=== PATIENT | female | born 1980 | race Caucasian/White ===

== ENCOUNTER 2021-06-26 17:40 | Observation (INO) ==
[2021-06-26 18:36] LABS: Basophils # (auto) 0.04 K/uL (0-0.2); Basophils % (auto) 0.4 %; Eosinophils # (auto) 0.03 K/uL (0-0.5); Eosinophils % (auto) 0.3 %; Hematocrit (blood only) 41.8 % (37-47); Hemoglobin 14.6 g/dL (12.0-16.0); Immature Granulocytes # (auto) 0.01 K/uL (0.00-0.02); Immature Granulocytes % (auto) 0.1 %; Lymphocytes # (auto) 2.45 K/uL (1.2-3.4); Lymphocytes % (auto) 24.5 %; Mean Corpuscular Hemoglobin 33.5 pg (25-34); Mean Corpuscular Hgb Conc 34.9 g/dL (32-36); Mean Corpuscular Volume 95.9 fL (80-100); Mean Platelet Volume 8.6 fL (7.4-10.4); Monocytes # (auto) 0.46 K/uL (0.11-0.59); Monocytes % (auto) 4.6 %; Neutrophils # (auto) 6.99 K/uL (1.4-6.5); Neutrophils % (auto) 70.1 %; Platelet Count 283 K/uL (130-400); RDW Coefficient of Variation 13.4 % (11.5-14.5); RDW Standard Deviation 47.5 fL (36.4-46.3); Red Blood Count 4.36 M/uL (4.2-5.4); White Blood Count 9.98 K/uL (4.8-10.8)
[2021-06-26] MEDS ORDERED: LORazepam 1 MG TAB SL STA ×2 (18:42→19:55)
[2021-06-26] MEDS ORDERED: NICOTINE 14 MG/24 HR PATCH TD STA (18:42)
[2021-06-26 18:47] LABS: Appearance Urine Clear (Clear); Bacteria Urine Automated 1+ (Negative); Bilirubin Urine Negative (Negative); Blood Urine Negative (Negative); Color Urine Yellow; Epithelial Cell Urine Auto >30 /lpf (0-5); Glucose Urine UA Negative (Negative); Ketones Urine Negative (Negative); Leukocyte Esterase Urine Trace (Negative); Nitrite Urine Negative (Negative); Protein Urine Trace (Negative); RBC Urine Automated 0-4 /hpf (0-4); Urobilinogen Urine Negative (Negative); pH Urine 5.5 (4.5-7.5)
[2021-06-26 19:00] LABS: Acetaminophen < 2 ug/ml (10-30); Salicylate < 1.7 mg/dl (2.8-20)
[2021-06-26 19:01] LABS: Alanine Aminotransferase 26 U/L (12-78); Albumin Level 3.5 gm/dl (3.4-5.0); Aspartate Aminotransferase 41 U/L (15-37); BUN Creatinine Ratio 14.4 (10-20); Blood Urea Nitrogen 14 mg/dl (7-18); Calcium 8.4 mg/dl (8.5-10.1); Carbon Dioxide 24 mmol/L (21-32); Chloride 105 mmol/L (98-107); Creatinine Clr Calc Pharmacy 89.2 ml/min; Est GFR (African American) 83.2 ml/min; Est GFR (Non-African American) 71.8 ml/min; Glucose 97 mg/dl (70-99); Potassium 3.8 mmol/L (3.5-5.1); Sodium 140 mmol/L (136-145)
[2021-06-26 19:04] LABS: Albumin Globulin Ratio 0.8 (0.9-2); Alkaline Phosphatase 62 U/L (45-117); Bilirubin,Total 0.3 mg/dl (0.2-1); Globulin 4.2 gm/dl (2.5-4.0); Total Protein 7.7 gm/dl (6.4-8.2)
[2021-06-26 19:15] LABS: Thyroid Stimulating Hormone 0.478 uIu/ml (0.300-4.500); Troponin I < 0.015 ng/ml (0-0.045)
--- NOTE | 2021-06-26 19:17 | Emergency Department Note ---
Impression & Plan Mood disorder, Suicidal ideation ED Provider Note INFORMANT: Patient ED PROVIDER(S): David Torrez MD CHIEF COMPLAINT: Mental health evaluation PLAN: Disposition: Still a patient Condition: Good Outpatient prescription management: none Referral: None MEDICAL DECISION MAKING: Patient presented to the emergency department requesting mental health evaluation. She had suicidal ideation. Patient had no significant findings on physical examination. Her vital signs were abnormal at first however these were rechecked after she was able to calm down. Vital signs are much better. She had a work-up obtained. Her CBC, chemistry panel, TSH, LFTs, and troponin were negative. ECG was unremarkable. Patient's blood alcohol was significantly elevated at 291. Patient was given oral Ativan as well as hydroxyzine. She was requesting something to help her sleep and calm down. This worked nicely. The patient was calm and cooperative. She was comfortable and was able to rest. He r medications were ordered. Unfortunately we do not have her Dovato here. ER psychiatric casework manager evaluation will take place at 0300 hrs. once the patient clears her alcohol intoxication. The patient's case was signed out to Dr. Huynh at the change of shift. Triage Nursing notes reviewed and agree them. Vital Signs: reviewed and remarkable for no significant abnormalities after the patient was able to calm down. Differential diagnosis: Mood disorder, infection, hypoglycemia, electrolyte abnormalities, cardiac sources, intracerebral event, toxicologic, trauma, neurologic, as well as other pathologies. Diagnostics interpreted by me: EC Lead ECG performed and revealed Normal sinus rhythym at 76, normal [place], QRS normal. No elevation or depression. No PACs or PVCs Imaging studies: Deferred HPI: The patient is a 40 year old for who presents to the Emergency Room with complaints of suicidal ideation. This started over the last few weeks and is escalating over the last few days. The patient also notes the following associated symptoms, muscle cramping, anxiety, trouble sleeping, excessive eating, and occasional chest pains. The patient has been using alcohol for relieving factors. Current pain is rated as 0/10. Patient states that she would like to crash her car. She has had a history of suicidal problems. She has been admitted. Pt denies LOC, headache, fevers, chills, diaphoresis, visual changes, neck pain, breathing difficulties, nausea, vomiting, abdominal pain, back pain, melena, hematochezia, urinary symptoms, numbness, weakness, lymphadenopathy, rash, or other complaints. ROS: See above HPI for pertinent positives & negatives. A total of 10 systems r eviewed and were otherwise negative. PAST MEDICAL HISTORY:See Below , drug abuse, anxiety, depression, HIV PAST SURGICAL HISTORY:See Below, FAMILY HISTORY:See Below SOCIAL HISTORY:See Below, +etoh HOME MEDICATIONS:See Below ALLERGIES:See Below VITALS:See Below PHYSICAL EXAMINATION: GENERAL: Awake, alert, well-appearing, in no distress HENT: Normocephalic, atraumatic. Oropharynx unremarkable. EYES: Normal conjunctiva. Sclera non-icteric. NECK: Inspection normal. Non-tender. Supple. No nuchal rigidity. FROM. No masses. RESPIRATORY: Clear to auscultation. No wheezes. No rales. Normal respiratory effort. CARDIAC: Normal rate. Normal rhythm. No murmurs. No rubs. Extremities warm and well perfused. Pulses equal. No JVD. GI: Soft, non-distended. No tenderness to palpation. No rebound or guarding. No masses. RECTAL: Deferred. MUSCULOSKELETAL: Atraumatic. Chest examination reveals no tenderness. The back is symmetrical on inspection without obvious abnormality. There is no CVA tenderness to palpation. No joint edema. LOWER EXTREMITIES: Calves are equal size bilaterally and non-tender. No edema. No discoloration. NEURO: Normal sensorium. No sensory or motor deficits noted. SKIN: No rash or jaundice noted. PSYCH: Depressed mood, labile affect. Suicidal. No homicidal ideation. David Torrez MD Past Med/Surg History Social History Feels Safe at Home: Yes Allergies Allergies Allergy/AdvReac Type Severity Reaction Status Date / Time No Known Allergies Allergy Unverified 06/26/21 18:54 Home Meds Home Medications Medication Instructions Recorded Confirmed bupropion HCl 100 mg tablet 450 mg PO DAILY 06/26/21 06/26/21 dolutegravir 50 mg-lamivudine 300 0 tab PO DAILY 06/26/21 06/26/21 mg tablet (Dovato) topiramate 200 mg tablet (Topamax) 200 mg PO BID 06/26/21 06/26/21 trazodone 100 mg tablet 200 mg PO HS 06/26/21 06/26/21 Results & Data (ED) Vital Signs Vital Signs - 24 hr 06/26/21 17:58 06/26/21 18:29 06/26/21 19:48 Temperature 36.4 C L 37.1 C Temperature Source Temporal Artery Scan Oral Pulse Rate 153 H Pulse Rate [Right Finger] 99 H 105 H Pulse Rhythm [Right Finger] Regular Pulse Strength [Right Finger] Normal Respiratory Rate 18 18 26 H Respiratory Effort / Characteristics Non-Labored Non-Labored Spontaneous Respiratory Depth Normal Normal Respiratory Pattern Regular Regular Blood Pressure 173/154 H Blood Pressure [Left Arm] 123/82 135/68 Blood Pressure Mean 160 Blood Pressure Mean [Left Arm] 95 90 Blood Pressure Position Sitting Blood Pressure Position [Left Arm] Lying Pulse Oximetry 94 97 98 Oxygen Delivery Method Room Air Room Air Room Air Sepsis Recent Fever Within 48 Hours No Sepsis New/Unexplained Change in Mental Status No Sepsis Action Taken by Nursing No Action Required 06/26/21 21:00 06/26/21 23:00 Temperature 36.9 C Temperature Source Oral Pulse Rate Pulse Rate [Right Finger] 88 87 Pulse Rhythm [Right Finger] Regular Pulse Strength [Right Finger] Normal Respiratory Rate 20 18 Respiratory Effort / Characteristics Non-Labored Spontaneous Respiratory Depth Normal Respiratory Pattern Regular Blood Pressure Blood Pressure [Left Arm] 100/52 L 117/65 Blood Pressure Mean Blood Pressure Mean [Left Arm] 68 82 Blood Pressure Position Blood Pressure Position [Left Arm] Lying Lying Pulse Oximetry 96 95 Oxygen Delivery Method Room Air Room Air Sepsis Recent Fever Within 48 Hours Sepsis New/Unexplained Change in Mental Status Sepsis Action Taken by Nursing Laboratory Data Result diagrams: 06/26/21 18:25 06/26/21 18:25 Lab Results 06/26/21 06/26/21 06/26/21 Range/Units 18:22 18:22 18:25 WBC 9.98 (4.8-10.8) K/uL RBC 4.36 (4.2-5.4) M/uL Hgb 14.6 (12.0-16.0) g/dL Hct 41.8 (37-47) % MCV 95.9 (80-100) fL MCH 33.5 (25-34) pg MCHC 34.9 (32-36) g/dL RDW Std Deviation 47.5 H (36.4-46.3) fL RDW Coeff of Aleena 13.4 (11.5-14.5) % Plt Count 283 (130-400) K/uL MPV 8.6 (7.4-10.4) fL Immature Gran % (Auto) 0.1 % Neut % (Auto) 70.1 % Lymph % (Auto) 24.5 % Bracken % (Auto) 4.6 % Eos % (Auto) 0.3 % Baso % (Auto) 0.4 % Neut # (Auto) 6.99 H (1.4-6.5) K/uL Lymph # (Auto) 2.45 (1.2-3.4) K/uL Bracken # (Auto) 0.46 (0.11-0.59) K/uL Eos # (Auto) 0.03 (0-0.5) K/uL Baso # (Auto) 0.04 (0-0.2) K/uL Immature Gran # (Auto) 0.01 (0.00-0.02) K/uL Sodium (136-145) mmol/L Potassium (3.5-5.1) mmol/L Chloride (98-107) mmol/L Carbon Dioxide (21-32) mmol/L Anion Gap (3-11) BUN (7-18) mg/dl Creatinine (0.6-1.2) mg/dl Est Cr Clr Drug Dosing ml/min Est GFR ( Amer) ml/min Est GFR (Non-Af Amer) ml/min BUN/Creatinine Ratio (10-20) Glucose (70-99) mg/dl Calcium (8.5-10.1) mg/dl Total Bilirubin (0.2-1) mg/dl AST (15-37) U/L ALT (12-78) U/L Alkaline Phosphatase (45-117) U/L Troponin I (0-0.045) ng/ml Total Protein (6.4-8.2) gm/dl Albumin (3.4-5.0) gm/dl Globulin (2.5-4.0) gm/dl Albumin/Globulin Ratio (0.9-2) TSH (0.300-4.500) uIu/ml HCG, Qual (Negative) Urine Color Yellow Urine Appearance Clear (Clear) Urine pH 5.5 (4.5-7.5) Ur Specific Christine 1.010 (1.000-1.030) Urine Protein Trace H (Negative) Urine Glucose (UA) Negative (Negative) Urine Ketones Negative (Negative) Urine Blood Negative (Negative) Urine Nitrite Negative (Negative) Urine Bilirubin Negative (Negative) Urine Urobilinogen Negative (Negative) Ur Leukocyte Esterase Trace H (Negative) Urine WBC (Auto) 5-10 H (0-5) /hpf Urine RBC (Auto) 0-4 (0-4) /hpf U Hyaline Cast (Auto) 1-5 (0-5) /lpf U Epithel Cells (Auto) >30 H (0-5) /lpf Urine Bacteria (Auto) 1+ H (Negative) Salicylates (2.8-20) mg/dl Urine Opiates Screen Neg (Neg) Ur Methadone, Qual Neg (Neg) Acetaminophen (10-30) ug/ml Urine Barbiturates Neg (Neg) Ur Phencyclidine (PCP) Neg (Neg) U Amphetamin/Meth Scrn Neg (Neg) MDMA (Ecstasy) Screen Pos H (Neg) U Benzodiazepines Scrn Neg (Neg) Ur Cocaine Metabolite Neg (Neg) U Marijuana (THC) Screen Neg (Neg) Ethyl Alcohol mg/dL (0-3) mg/dl COVID-19 Eval Order SARS-CoV-2 (PCR) (Negative) 06/26/21 06/26/21 06/26/21 Range/Units 18:25 18:25 18:25 WBC (4.8-10.8) K/uL RBC (4.2-5.4) M/uL Hgb (12.0-16.0) g/dL Hct (37-47) % MCV (80-100) fL MCH (25-34) pg MCHC (32-36) g/dL RDW Std Deviation (36.4-46.3) fL RDW Coeff of Aleena (11.5-14.5) % Plt Count (130-400) K/uL MPV (7.4-10.4) fL Immature Gran % (Auto) % Neut % (Auto) % Lymph % (Auto) % Bracken % (Auto) % Eos % (Auto) % Baso % (Auto) % Neut # (Auto) (1.4-6.5) K/uL Lymph # (Auto) (1.2-3.4) K/uL Bracken # (Auto) (0.11-0.59) K/uL Eos # (Auto) (0-0.5) K/uL Baso # (Auto) (0-0.2) K/uL Immature Gran # (Auto) (0.00-0.02) K/uL Sodium 140 (136-145) mmol/L Potassium 3.8 (3.5-5.1) mmol/L Chloride 105 (98-107) mmol/L Carbon Dioxide 24 (21-32) mmol/L Anion Gap 12.0 H (3-11) BUN 14 (7-18) mg/dl Creatinine 0.99 (0.6-1.2) mg/dl Est Cr Clr Drug Dosing 89.2 ml/min Est GFR ( Amer) 83.2 ml/min Est GFR (Non-Af Amer) 71.8 ml/min BUN/Creatinine Ratio 14.4 (10-20) Glucose 97 (70-99) mg/dl Calcium 8.4 L (8.5-10.1) mg/dl Total Bilirubin 0.3 (0.2-1) mg/dl AST 41 H (15-37) U/L ALT 26 (12-78) U/L Alkaline Phosphatase 62 (45-117) U/L Troponin I < 0.015 (0-0.045) ng/ml Total Protein 7.7 (6.4-8.2) gm/dl Albumin 3.5 (3.4-5.0) gm/dl Globulin 4.2 H (2.5-4.0) gm/dl Albumin/Globulin Ratio 0.8 L (0.9-2) TSH 0.478 (0.300-4.500) uIu/ml HCG, Qual (Negative) Urine Color Urine Appearance (Clear) Urine pH (4.5-7.5) Ur Specific Christine (1.000-1.030) Urine Protein (Negative) Urine Glucose (UA) (Negative) Urine Ketones (Negative) Urine Blood (Negative) Urine Nitrite (Negative) Urine Bilirubin (Negative) Urine Urobilinogen (Negative) Ur Leukocyte Esterase (Negative) Urine WBC (Auto) (0-5) /hpf Urine RBC (Auto) (0-4) /hpf U Hyaline Cast (Auto) (0-5) /lpf U Epithel Cells (Auto) (0-5) /lpf Urine Bacteria (Auto) (Negative) Salicylates < 1.7 L (2.8-20) mg/dl Urine Opiates Screen (Neg) Ur Methadone, Qual (Neg) Acetaminophen < 2 L (10-30) ug/ml Urine Barbiturates (Neg) Ur Phencyclidine (PCP) (Neg) U Amphetamin/Meth Scrn (Neg) MDMA (Ecstasy) Screen (Neg) U Benzodiazepines Scrn (Neg) Ur Cocaine Metabolite (Neg) U Marijuana (THC) Screen (Neg) Ethyl Alcohol mg/dL 291.5 H (0-3) mg/dl COVID-19 Eval Order SARS-CoV-2 (PCR) (Negative) 06/26/21 06/26/21 06/26/21 Range/Units 18:25 18:55 18:55 WBC (4.8-10.8) K/uL RBC (4.2-5.4) M/uL Hgb (12.0-16.0) g/dL Hct (37-47) % MCV (80-100) fL MCH (25-34) pg MCHC (32-36) g/dL RDW Std Deviation (36.4-46.3) fL RDW Coeff of Aleena (11.5-14.5) % Plt Count (130-400) K/uL MPV (7.4-10.4) fL Immature Gran % (Auto) % Neut % (Auto) % Lymph % (Auto) % Bracken % (Auto) % Eos % (Auto) % Baso % (Auto) % Neut # (Auto) (1.4-6.5) K/uL Lymph # (Auto) (1.2-3.4) K/uL [place] # (Auto) (0.11-0.59) K/uL Eos # (Auto) (0-0.5) K/uL Baso # (Auto) (0-0.2) K/uL Immature Gran # (Auto) (0.00-0.02) K/uL Sodium (136-145) mmol/L Potassium (3.5-5.1) mmol/L Chloride (98-107) mmol/L Carbon Dioxide (21-32) mmol/L Anion Gap (3-11) BUN (7-18) mg/dl Creatinine (0.6-1.2) mg/dl Est Cr Clr Drug Dosing ml/min Est GFR ( Amer) ml/min Est GFR (Non-Af Amer) ml/min BUN/Creatinine Ratio (10-20) Glucose (70-99) mg/dl Calcium (8.5-10.1) mg/dl Total Bilirubin (0.2-1) mg/dl AST (15-37) U/L ALT (12-78) U/L Alkaline Phosphatase (45-117) U/L Troponin I (0-0.045) ng/ml Total Protein (6.4-8.2) gm/dl Albumin (3.4-5.0) gm/dl Globulin (2.5-4.0) gm/dl Albumin/Globulin Ratio (0.9-2) TSH (0.300-4.500) uIu/ml HCG, Qual Negative (Negative) Urine Color Urine Appearance (Clear) Urine pH (4.5-7.5) Ur Specific Christine (1.000-1.030) Urine Protein (Negative) Urine Glucose (UA) (Negative) Urine Ketones (Negative) Urine Blood (Negative) Urine Nitrite (Negative) Urine Bilirubin (Negative) Urine Urobilinogen (Negative) Ur Leukocyte Esterase (Negative) Urine WBC (Auto) (0-5) /hpf Urine RBC (Auto) (0-4) /hpf U Hyaline Cast (Auto) (0-5) /lpf U Epithel Cells (Auto) (0-5) /lpf Urine Bacteria (Auto) (Negative) Salicylates (2.8-20) mg/dl Urine Opiates Screen (Neg) Ur Methadone, Qual (Neg) Acetaminophen (10-30) ug/ml Urine Barbiturates (Neg) Ur Phencyclidine (PCP) (Neg) U Amphetamin/Meth Scrn (Neg) MDMA (Ecstasy) Screen (Neg) U Benzodiazepines Scrn (Neg) Ur Cocaine Metabolite (Neg) U Marijuana (THC) Screen (Neg) Ethyl Alcohol mg/dL (0-3) mg/dl COVID-19 Eval Order Covid19 at [facility] SARS-CoV-2 (PCR) NEGATIVE (Negative) Administered Medications Discontinued Medications Hydroxyzine HCl (Hydroxyzine Hcl 25 Mg Tab) 50 mg PO NOW STA Stop: 06/26/21 19:56 Last Admin: 06/26/21 20:04 Dose: 50 mg Documented by: [id number] Lorazepam (Lorazepam 1 Mg Tab) 1 mg SL NOW STA Stop: 06/26/21 18:43 Last Admin: 06/26/21 19:05 Dose: 1 mg Documented by: [id number] Lorazepam (Lorazepam 1 Mg Tab) 1 mg SL NOW STA Stop: 06/26/21 19:56 Last Admin: 06/26/21 20:04 Dose: 1 mg Documented by: [id number] Nicotine (Nicotine 14 Mg/24 Hr Patch) 14 mg TD NOW STA Stop: 06/26/21 18:43 Last Admin: 06/26/21 19:06 Dose: 14 mg Documented by: [id number] Discharge Plan Visit Data Chief Complaint: Mental Health Evaluation Stated Complaint: ANXIETY, SHAKING ED Provider: David Torrez Discharge Problem: Mood disorder, Suicidal ideation Forms Stand Alone Forms: [facility], Suicide Prevention Resources Prescriptions Prescriptions: No Action bupropion HCl [Wellbutrin] 100 mg Tablet 450 mg PO DAILY RF: 0 trazodone 100 mg Tablet 200 mg PO HS RF: 0 topiramate [Topamax] 200 mg Tablet 200 mg PO BID RF: 0 Dovato 50-300 mg Tablet 0 tab PO DAILY RF: 0 Referrals Referrals: PCP,NO [Primary Care Provider] -
[2021-06-26 19:21] LABS: Pregnancy Test, Serum Negative (Negative)
[2021-06-26 19:23] LABS: Amphetamines+Metham, Urine Neg (Neg); Barbiturates, Urine Neg (Neg); Benzodiazepine, Urine Neg (Neg); Cocaine, Urine Neg (Neg); MDMA (Ecstacy), Urine Pos (Neg); Methadone, Urine Neg (Neg); Opiate, Urine Neg (Neg); Phencyclidine, Urine Neg (Neg)
[2021-06-26] MEDS ORDERED: hydrOXYzine HCl 25 MG TAB PO STA (19:55)
--- NOTE | 2021-06-27 07:11 | Emergency Department Note ---
ED Visit Note I received this patient at the change of shift from Dr. Torrez pending mental health evaluation. This patient stated that she was drinking 8 shots daily to previous staff however upon mental health case pickerinternational bank manager stated 20 shots daily. Upon review of the patient's ED record she had received 1 mg of Ativan orally at 3 AM and a second dose at 4 AM and nothing in the last 8 hours. Patient's vital signs have not changed, heart rate and blood pressure are stable. She is showing no signs of significant alcohol withdrawal currently. She has not having enough Ativan over the last 8 hours to prevent withdrawal and if the daily alcohol consumption she claims are true, significant w/d sx would be expected. Pt desires inpatient mental health treatment. Currently, a bedsearch is underway. Case was signed out to Dr. Lopez at the change of shift pending final disposition. .
[2021-06-27] MEDS ORDERED: LORazepam 1 MG TAB SL PRN (07:39)
--- NOTE | 2021-06-27 07:47 | Emergency Department Note ---
ED Visit Note ED Physician Sign Out Note: 40 yr old female here on a voluntary basis for mental health evaluation. Due to heavy intoxication last night she was monitored and signed out to me this morning. Patient reportedly alcohol abuse thus monitoring for any withdrawal symptoms. She is on HIV medications pending Case Management attempting to get her medications. On evaluation throughout morning patient becoming more shaky and tremulous. Blood pressure is starting to elevate and patient is unsteady. She admits history of alcohol withdrawal seizures, and denies ability to go more than 12 to 24 hours without a drink in quite some time. IV established and she was given 2 mg IV ativan and a banana bag IV. Dr Barbara Kim hospitalist consulted for further management. Aguila Lopez MD
[2021-06-27] MEDS ORDERED: buPROPion XL 150 MG TABCR PO SCH (09:00)
[2021-06-27] MEDS ORDERED: TOPIRAMATE 100 MG TAB PO SCH (09:00)
[2021-06-27] MEDS ORDERED: LORazepam 2 MG/4 ML VIAL IV STA (11:45)
[2021-06-27] MEDS ORDERED: MULTI-VITAMIN INFUSION 10 ML, THIAMINE HCL 100 MG, FOLIC ACID 1 MG in SODIUM CHLORIDE 0... IV ONE ×2 (11:45→17:00)
[2021-06-27] MEDS ORDERED: chlordiazePOXIDE ALCOHOL WITHDRAWL 50MG PO STA (12:36)
[2021-06-27] MEDS: CHLORDIAZEPOXIDE 50MG STARTING DOSE PO SCH ×2 (14:04→19:25)
[2021-06-27] MEDS ORDERED: LORazepam 2 MG/4 ML VIAL IV PRN (16:10)
[2021-06-27] MEDS ORDERED: LORazepam 1 MG/2 ML VIAL IV PRN (16:10)
[2021-06-27] MEDS ORDERED: LORazepam 0.5 MG/1 ML VIAL IV PRN (16:10)
[2021-06-27] MEDS ORDERED: PROMETHAZINE HCL 12.5 MG in SODIUM CHLORIDE 0.9% 50 ML IV PRN (16:10)
[2021-06-27] MEDS ORDERED: THIAMINE HCL 100 MG TAB PO SCH (16:10)
[2021-06-27] MEDS ORDERED: LORazepam 3 MG/6 ML VIAL IV PRN (16:10)
[2021-06-27] MEDS ORDERED: ACETAMINOPHEN 325 MG TAB PO PRN (16:10)
[2021-06-27] MEDS ORDERED: ATIVAN IV ALCOHOL WITHDRAWL IV PRN (16:10)
[2021-06-27] MEDS ORDERED: chlordiazePOXIDE HCl 25 MG CAP PO SCH (16:10)
--- NOTE | 2021-06-27 16:20 | Electrocardiogram Report ---
Test Reason : Blood Pressure : / mmHG Vent. Rate : 076 BPM Atrial Rate : 076 BPM P-R Int : 176 ms QRS Dur : 092 ms QT Int : 410 ms P-R-T Axes : 076 053 064 degrees QTc Int : 461 ms Normal sinus rhythm Normal ECG No previous ECGs available Confirmed by Patricio Angulo ([id number]) on 06/27/2021 4:20:03 PM Referred By: REFERRED SELF Confirmed By:Patricio Angulo
[2021-06-27] MEDS: FOLIC ACID 1 MG TAB PO SCH (17:08)
[2021-06-27] MEDS: NICOTINE 21 MG/24 HR TDSY TD SCH (17:12)
--- NOTE | 2021-06-27 17:45 | History & Physical Report ---
Date of Service June 27, 2021 Assessment & Plan (1) Suicidal ideation: Plan: 40-year-old female with history of depression anxiety, alcoholism, HIV, presenting with suicidal ideation. ALCOHOL WITHDRAWAL Alcohol withdrawal protocol including Librium taper, banana bag Monitor closely SUICIDAL IDEATION Psychiatry service consulted Patient is presenting for voluntary inpatient psych care Discussed with psych liaison Continue one-to-one observation CHEST PAIN Likely secondary to anxiety Will rule out ACS as patient is a heavy smoker Check troponins x3 Echocardiogram EKG no signs of acute ischemia or infarct Continue trazodone, Topamax Has not been taking Wellbutrin for the past 2 days Further recommendations regarding medication management per psychiatry service HIV Patient takes Devato daily Patient will try to have somebody bring her HIV medication SMOKER Cessation encouraged Nicotine patch for now DVT prophylaxis SCDs Ambulation encouraged CODE STATUS Full code Disposition Discharge to inpatient psych unit once medically stable plan of care discussed with patient in detail and at length all questions answered she is understanding, agreeable, comfortable with the plan of care Admission and Anticipated Discharge Date Admission Date: June 27, 2021 History of Present Illness Chief Complaint: 40-year-old female with history of depression anxiety, alcoholism, HIV, presenting with suicidal ideation. Patient reports increasing depression anxiety symptoms recently leading to alcohol use. She reports that she has been taking at least 15-20 shots of alcohol for the past week. She presented to the ER with increasing depression symptoms and suicidal ideations. At the ER, patient was seen by psych liaison and inpatient psychiatry was recommended. While being observed, patient was noted to be in alcohol withdrawal. She was given IV Ativan at the ER. Patient seen at the bedside with MILVIA Fry at the bedside throughout all encounter. States she feels very anxious about the succeeding steps of her inpatient psych care. Reports Ativan helped with anxiety. Also reports chest discomfort over the past 1 to 2 days mostly on the left chest wall, shoulder area. No shortness of breath, palpitations, dizziness, nausea vomiting. She admits to smoking 1 pack/day. No other symptoms Primary Care Provider: NO PCP Allergies Allergy/AdvReac Type Severity Reaction Status Date / Time No Known Allergies Allergy Unverified 06/26/21 18:54 Home Medications Medication Instructions Recorded Confirmed Type bupropion HCl 100 mg tablet 450 mg PO DAILY 06/26/21 06/26/21 History dolutegravir 50 mg-lamivudine 300 0 tab PO DAILY 06/26/21 06/26/21 History mg tablet (Dovato) topiramate 200 mg tablet (Topamax) 200 mg PO BID 06/26/21 06/26/21 History trazodone 100 mg tablet 200 mg PO HS 06/26/21 06/26/21 History Past Med/Surg History Social History Smoking Status: Current every day smoker Cigarettes Per Day: 20; Tobacco Cessation Education Requested by Patient: No Hx Alcohol Use: Yes Alcohol type: hard liquor Hx Substance Use: Yes Communication Ability: Effective Furniture Removalist Required: No Beliefs That Will Affect Care: None Current Living Situation: Other Current Living Situation Comment: 3 room mates Other Information That Helps Us Care for You: No Feels Safe at Home: Yes Safety Concerns: Feels Safe At This Time Assistive Devices: None Review of Systems Review of Systems: all noted and negative except for above Physical Exam Physical Exam: General- oriented x 3, not in distress, speaks in sentences with no effort or accessory muscle use Head- atraumatic Eyes- PERRL, EOMI, anicteric ENT- oropharynx clear Neck- supple, no JVD, no adenopathy, no thyromegaly; carotids +2/2, no bruits appreciated Lungs- clear to auscultation bilaterally, no rales/wheezes Heart- normal rate, regular rhythm; no murmur, no gallop, no rub appreciated Abdomen- normal bowel sounds, nondistended, soft, nontender, no masses or hepatosplenomegaly Extremities- no pretibial edema, no calf tenderness; peripheral pulses intact Neuro- alert, oriented x 3; CN 2-12 grossly intact; motor 5/5 bilaterally;sensation 100% on all extremities; no other gross focal neurologic deficits Skin- warm & dry Psych-appears anxious, normal affect, calm cooperative Results & Data Results & Data ([facility]) Vital Signs (Past 12 Hours) Vital Signs Temp Pulse Pulse Resp BP BP Pulse Ox 06/27/21 16:37 36.8 C 67 14 122/83 98 06/27/21 16:00 70 14 06/27/21 15:41 122/83 97 06/27/21 14:59 68 20 98 06/27/21 14:10 68 16 06/27/21 14:00 72 17 06/27/21 13:50 80 21 06/27/21 13:40 71 21 06/27/21 13:30 71 18 06/27/21 13:28 72 15 06/27/21 13:10 70 16 06/27/21 13:00 81 15 132/95 06/27/21 12:50 73 18 06/27/21 12:40 72 20 06/27/21 12:30 73 18 128/10 L 06/27/21 12:16 84 17 06/27/21 11:43 96 H 20 143/107 H 96 06/27/21 07:01 78 16 148/87 H 97 all noted and reviewed including below Code Status & VTE Plan VTE Prophylaxis Plan VTE Prophylaxis will be ordered: Yes
[2021-06-27] MEDS: TOPIRAMATE 100 MG TAB PO SCH (20:57)
[2021-06-27] MEDS ORDERED: traZODone HCL 100 MG TAB PO SCH ×2 (21:00)
[2021-06-28] MEDS: CHLORDIAZEPOXIDE 50MG STARTING DOSE PO SCH ×2 (01:23→08:49)
[2021-06-28 05:36] LABS: Basophils # (auto) 0.03 K/uL (0-0.2); Basophils % (auto) 0.4 %; Eosinophils # (auto) 0.21 K/uL (0-0.5); Eosinophils % (auto) 2.5 %; Hematocrit (blood only) 35.6 % (37-47); Hemoglobin 11.7 g/dL (12.0-16.0); Immature Granulocytes # (auto) 0.01 K/uL (0.00-0.02); Immature Granulocytes % (auto) 0.1 %; Lymphocytes # (auto) 2.05 K/uL (1.2-3.4); Lymphocytes % (auto) 24.2 %; Mean Corpuscular Hemoglobin 32.5 pg (25-34); Mean Corpuscular Hgb Conc 32.9 g/dL (32-36); Mean Corpuscular Volume 98.9 fL (80-100); Mean Platelet Volume 9.2 fL (7.4-10.4); Monocytes # (auto) 0.63 K/uL (0.11-0.59); Monocytes % (auto) 7.4 %; Neutrophils # (auto) 5.53 K/uL (1.4-6.5); Neutrophils % (auto) 65.4 %; Platelet Count 184 K/uL (130-400); RDW Coefficient of Variation 13.6 % (11.5-14.5); RDW Standard Deviation 49.2 fL (36.4-46.3); White Blood Count 8.46 K/uL (4.8-10.8)
[2021-06-28 06:01] LABS: Alanine Aminotransferase 21 U/L (12-78); Albumin Level 2.9 gm/dl (3.4-5.0); Aspartate Aminotransferase 28 U/L (15-37); Bilirubin Direct 0.2 mg/dl (0-0.2); Bilirubin,Total 0.5 mg/dl (0.2-1); Blood Urea Nitrogen 10 mg/dl (7-18); Calcium 8.6 mg/dl (8.5-10.1); Carbon Dioxide 22 mmol/L (21-32); Chloride 112 mmol/L (98-107); Creatinine Clr Calc Pharmacy 98.5 ml/min; Est GFR (African American) 92.1 ml/min; Est GFR (Non-African American) 79.5 ml/min; Glucose 100 mg/dl (70-99); Magnesium 2.1 mg/dl (1.8-2.4); Phosphorus 2.7 mg/dl (2.5-4.9); Potassium 4.1 mmol/L (3.5-5.1); Sodium 139 mmol/L (136-145); Total Protein 6.3 gm/dl (6.4-8.2)
[2021-06-28 06:16] LABS: Alkaline Phosphatase 49 U/L (45-117); Troponin I < 0.015 ng/ml (0-0.045)
[2021-06-28] MEDS: TOPIRAMATE 100 MG TAB PO SCH (08:57)
[2021-06-28] MEDS: FOLIC ACID 1 MG TAB PO SCH (08:57)
[2021-06-28] MEDS: NICOTINE 21 MG/24 HR TDSY TD SCH (08:57)
[2021-06-28] MEDS ORDERED: THIAMINE HCL 100 MG TAB PO SCH (09:00)
[2021-06-28] MEDS ORDERED: buPROPion HCl 75 MG TABLET PO SCH (09:00)
--- NOTE | 2021-06-28 11:26 | Psychiatric Consultation ---
Date of Consultation June 28, 2021 Impression / Recommendations Impression 40 yo woman with a history of anxiety, depression, BPD, PTSD, history of opioid use disorder in sustained remission, and alcohol use disorder admitted for SI and concern for high risk for alcohol withdrawal. Psychiatry was consulted for risk assessment and disposition recommendations. Diagnostically consistent with unspecified depression and anxiety-likely a combination of MDD, TERE as well as alcohol-induced depression and anxiety. Discussed my recommendation for referral to dual diagnosis inpatient psychiatric and substance use treatment and/or residential substance use treatment which she declines at this time due to concerns about financial stability and desire to return to her apartment and pets. Discussed option for outpatient referrals for psychiatry and therapy and IOP of substance use which she also declines at this time. Discussed option to try propranolol for anxiety as this is a much safer alternative to a benzodiazepine which she is agreeable to trying though she notes her eagerness to leave the hospital soon. While I think she would benefit from inpatient psychiatric treatment at this time she does not meet criteria for involuntary treatment and she declines voluntary treatment. Discussed with her ways to reduce both her acute and chronic risk of harm to self including substance use treatment as the most significant modifiable risk factor as well as starting therapy and outpatient psychiatric support to find medications to better manage her anxiety. In terms of acute risk she is deemed to be at low imminent risk of harm to self given denial of SI, future oriented, engaged in safety planning, no access to guns and no hx of past suicide attempts and hx of seeking help when she becomes suicidal. Chronic risk is moderate, especially if she continues to use alcohol, and if her mood symptoms remain suboptimally managed. Also discussed with her risks of potentially fatal alcohol withdrawal should she choice to not allow ongoing monitoring and encouraged her to stay to receive ongoing treatment for this. (1) Depression, unspecified: (2) Anxiety disorder, unspecified: (3) Alcohol use disorder: -Safe to discharge from a psychiatric standpoint if she asks to leave -Provided with local resources for mental health and substance use supports -If she agrees to stay will continue to encourage her to allow us to refer her for higher level of care or for outpatient psych services -Can offer propranolol 10 mg BID prn for anxiety -c/w alcohol withdrawal protocol -discontinue 1:1 given no SI -hold prior to admission psych medications for now given acute withdrawal Risk Factors Assessment : Yes Do You Have Access To A Gun?: No Mental Health Diagnoses: Yes Substance Use Disorders: Yes Previous Attempt: No Family History of Suicide: No Previous Psychiatric Hospitalization: Yes Hopelessness: No Protective Factors Assessment Employed: Yes Stable Relationships: Yes Supportive Family: Yes Psych History Identifying Data 40 yo woman with a history of anxiety, depression, BPD, PTSD, history of opioid use disorder in sustained remission, and alcohol use disorder and HIV admitted for SI and concern for high risk for alcohol withdrawal. Psychiatry was consulted for risk assessment and disposition recommendations. Chief Complaint "I felt like enough was enough". History of Present Illness Jamaal endorses a long history of depression and especially anxiety which have not responded well to medications in the past except use of benzodiazepines. Most recently she was taking Wellbutrin, Topimax and Trazodone for her mood and sleep. She notes that over the last week she was facing a lot of stressors including car issues, fiancial strain, issues with her roommates, chronic pain, high anxiety and frustration with work as well as some of her family moving out of state. She notes that this lead her to feel overwhelmed and decided to drink more alcohol to cope with this. She was drinking 20 shots of liquor per day over the last week, prior to this she was drinking 10 shots per day. She then felt sick from drinking all the alcohol and starting to experience SI with thoughts of driving off a bridge which scared her so she told her roommates and then helped her get an uber to come to the hospital. On arrival her TABITHA was elevated and she was deemed high risk for withdrawal and thus admitted medically. Currently she adamantly denies any SI and while she recognizes that none of her stressors have changed she feels like now that she is not drinking alcohol/no longer intoxicated her mood has improved and she can think more logically. She notes many reasons to live and significant deterrents including her family, pets and life goals. She is future-oriented about looking for a new apartmemt, wanting to go home and shower and able to safety plan including reviewing what she would do if the SI re-emerged. She has no access to guns and has never attempted suicide. She states that if SI re-emerged she would reach out to her family or roommates again and return to the ED if she felt unsafe. Also reviewed national crisis line resources. She is most interested in benzodiazepines for her anxiety as she felt this was the only thing that has ever helped her. We reviewed why benzodiazepines are not a good treatment option for anxiety and that it would not be safe given her alcohol use and contraindicated. Discussed option of propranolol which she has not tried for anxiety before. Doesn't find buspar or vistaril helpful. In the past she took naltrexone and found this helpful for alcohol use and she endorses a history of prior substance use treatment in the past including 2-3 prior residential substance use treatment programs (last in 2013) and living in supportive housing/retirement houses but primarily when she was dealing with opioid use disorder which she has avoided any use since 2013 with the exception of two isolated "slip ups". She denies any recent use of any substances except alcohol. No history of complicated alcohol withdrawal. She had been taking Wellbutrin 450 mg qd, topamax 200 mg BID and trazodone 200 mg qhs prior to admission. States she sometimes forgets to take her Wellbutrin if she sleeps in. Past Psychiatric History Current Psychiatric Diagnosis: MDD, TERE, BPD, and PTSD Outpatient Services: none currently Previous Psych Admissions: hx multiple admissions in the past Do You Have Access To A Gun?: No History of Previous Suicide Attempt: No Past Medication Trials: lexapro, prazac, xanax, ativan, vistaril, buspar, naltrexone Allergies Allergy/AdvReac Type Severity Reaction Status Date / Time No Known Allergies Allergy Unverified 06/26/21 18:54 Home Medications Medication Instructions Recorded Confirmed Type bupropion HCl 100 mg tablet 450 mg PO DAILY 06/26/21 06/26/21 History dolutegravir 50 mg-lamivudine 300 0 tab PO DAILY 06/26/21 06/26/21 History mg tablet (Dovato) topiramate 200 mg tablet (Topamax) 200 mg PO BID 06/26/21 06/26/21 History trazodone 100 mg tablet 200 mg PO HS 06/26/21 06/26/21 History Family History depression, ADHD Substance Abuse History see HPI Personal History Living Arrangements: Apartment Beliefs That Will Affect Care: None Patient History Social History Smoking Status: Current every day smoker Cigarettes Per Day: 20; Tobacco Cessation Education Requested by Patient: No Hx Alcohol Use: Yes Alcohol type: hard liquor Hx Substance Use: Yes Communication Ability: Effective Benefits Consulting Analyst Required: No Beliefs That Will Affect Care: None Current Living Situation: Other Current Living Situation Comment: 3 room mates Other Information That Helps Us Care for You: No Feels Safe at Home: Yes Safety Concerns: Feels Safe At This Time Assistive Devices: None Physical Exam Psychiatric: Orientation: alert and oriented x 3 Apperance: appropriately dressed and appropriately groomed Eye Contact: good eye contact Motor Behavior: no abnormal motor movements Speech: normal rate/rhythm/volume of speech Affect: + anxious affect Mood: + depressed mood and + anxious mood Thought Process: goal directed thought process Thought Content: reality based without delusions Suicidal Thoughts: denies suicidal thoughts Homicidal Thoughts: denies homicidal thoughts Hallucinations: no auditory hallucinations and no visual hallucinations Cognition: attention grossly intact and language grossly intact Estimated Intelligence: consistent with education level Insight: + fair insight Judgement: + limited judgement Vital Signs (Past 24 Hours): Last Vital Signs Temp 37.1 C 06/28/21 08:00 Pulse 81 06/28/21 08:00 Resp 18 06/28/21 08:00 BP 145/101 H 06/28/21 08:00 Pulse Ox 99 06/28/21 08:00 Review of Systems All systems reviewed & are unremarkable except as noted in HPI & below Results & Data (PSY) Medications Administered Folic Acid (Folic Acid 1 Mg Tab) 1 mg PO QAM [facility] Stop: 07/27/21 16:09 Last Admin: 06/28/21 08:57 Dose: 1 mg Documented by: [id number] Admin: 06/27/21 17:08 Dose: 1 mg Documented by: [id number] Miscellaneous (Dovato- Order Awaiting Action) 1 ea N/A QS [facility] Stop: 07/28/21 00:00 Last Admin: 06/28/21 08:50 Dose: Not Given Documented by: [id number] Admin: 06/27/21 22:37 Dose: Not Given Documented by: [id number] Miscellaneous (Remove Nicoderm Patch) 1 ea N/A DAILY@0859 [facility] Stop: 07/28/21 08:58 Last Admin: 06/28/21 08:50 Dose: 1 ea Documented by: [id number] Nicotine (Nicotine 21 Mg/24 Hr Tdsy) 21 mg TD QAM [facility] Stop: 07/27/21 16:59 Last Admin: 06/28/21 08:57 Dose: 21 mg Documented by: [id number] Admin: 06/27/21 17:12 Dose: 21 mg Documented by: [id number] Thiamine HCl (Thiamine Hcl 100 Mg Tab) 200 mg PO BID [facility] Stop: 07/28/21 08:59 Last Admin: 06/28/21 08:56 Dose: 200 mg Documented by: [id number] Topiramate (Topiramate 100 Mg Tab) 200 mg PO BID [facility] Stop: 07/27/21 20:59 Last Admin: 06/28/21 08:57 Dose: 200 mg Documented by: [id number] Admin: 06/27/21 20:57 Dose: 200 mg Documented by: [id number] Trazodone HCl (Trazodone Hcl 100 Mg Tab) 200 mg PO HS [facility] Stop: 07/27/21 20:59 Last Admin: 06/27/21 20:58 Dose: 200 mg Documented by: [id number] Coding Level of Care Code 07533 Inpt Consult Level 4 Diagnoses Depression, unspecified F32.A Anxiety disorder, unspecified F41.9 Alcohol use disorder
--- NOTE | 2021-06-28 13:40 | Discharge Summary ---
Date of Service date of admission - June 27, 2021 date of discharge (left against medical advice - AMA) - June 28, 2021 Admission HPI Per Admitting Provider 40-year-old female with history of depression anxiety, alcoholism, HIV, presenting with suicidal ideation. Patient reports increasing depression anxiety symptoms recently leading to alcohol use. She reports that she has been taking at least 15-20 shots of alcohol for the past week. She presented to the ER with increasing depression symptoms and suicidal ideations. At the ER, patient was seen by psych liaison and inpatient psychiatry was recommended. While being observed, patient was noted to be in alcohol withdrawal. She was given IV Ativan at the ER. Patient seen at the bedside with MILVIA Fry at the bedside throughout all encounter. States she feels very anxious about the succeeding steps of her inpatient psych care. Reports Ativan helped with anxiety. Also reports chest discomfort over the past 1 to 2 days mostly on the left chest wall, shoulder area. No shortness of breath, palpitations, dizziness, nausea vomiting. She admits to smoking 1 pack/day. Principal Diagnosis 1. alcohol withdrawal 2. depression with suicidal ideation/thoughts of dying Discharge Exam gen - NAD, awake, alert eyes - no nystagmus heart - RRR, s1 s2, no murmur lungs - CTA b/l abd - soft NT ND BS+ ext - no edema, pulses 2+ b/l neuro - scant tremor of arms psych - a/o x 3, fast speech, denies suicidal ideation, poor insight but understands risks of leaving the hospital AMA Discharge Data Allergies Allergy/AdvReac Type Severity Reaction Status Date / Time No Known Allergies Allergy Unverified 06/26/21 18:54 Consultations Psychiatry Procedures Performed Echocardiogram - EF 60-65%, normal LV wall motion; normal valve function Hospital Course (1) Alcohol use disorder: Patient was felt to be in mild alcohol withdrawal upon presentation. Was initiated on librium along with prn ativan. Received MVI/folate/thiamine supplementation. On day of leaving AMA she had minimal symptoms of alcohol withdrawal. Patient was counseled on the day of leaving AMA that she was at risk of alcohol withdrawal seizure and other symptoms associated with alcohol withdrawal. She was counseled that people can undergoing alcohol withdrawal outside of a medical setting. She was NOT prescribed benzodiazepines or other alcohol withdrawal meds (phenobarbital, etc) upon discharge. Patient declined all inpatient/outpatient resources for her alcohol abuse. (2) Depression, unspecified: Seen by psychiatry for her depression and thoughts of dying/suicidal ideation. Psychiatry felt that she would benefit from inpatient psychiatric treatment; however, she did not meet criteria for involuntary treatment and she declined voluntary treatment. The patient denied suicidal ideation to psychiatry. (3) Anxiety disorder, unspecified: (4) Suicidal ideation: The patient denied suicidal ideation when interviewed by psychiatry. Although psychiatry advised inpatient psychiatric treatment, the patient did not meet criteria for involuntary treatment per psychiatry. The patient declined voluntary treatment in the mental health unit. (5) Chest pain: Troponins were negative. EKG without ischemic changes. Echo did not show any wall motion abnormalities; LV function was preserved. Ideally patient undergo outpatient stress test to be complete. The patient left AMA before this recommendation could be made. Total Time Total Time Spent Total Time Spent (In Minutes): 35 Discharge Plan Discharge Items Patient Disposition: Against Medical Advice Reason For Visit: ALCOHOL WITHDRAWAL Activity: Resume your previous activity Non-emergency contact: Primary Care Provider Follow-up/Referrals: PCP,NO [Primary Care Provider] - (see your family doctor within 24 hours) Addtl Customs Compliance Manager Provider Instructions: Ms Manley, You were hospitalized at [facility] for early alcohol withdrawal. You were started on medications to help control the symptoms of alcohol withdrawal. [facility] Psychiatrist saw you in consult for your depression. The medical care team including the psychiatrist & hospitalist have all recommended that you remain hospitalized for ongoing care of your alcohol withdrawal and mood problems. You have chosen to leave AMA (against medical advice). Please know that alcohol withdrawal can lead to severe, uncomfortable symptoms when not treated in a medical setting. It can also lead to withdrawal seizures and even . You have voiced that you understand these risks as noted above. If you have any suicidal thoughts or intent to hurt yourself or anyone else please seek medical attention immediately. You have voiced understanding of all of the above. Please see your family doctor within 24 hours for ongoing care. Work note -- Ms Manley was hospitalized at [facility] from 06/27/21 to 06/28/21. Alfred Balderas MD Pending Studies at Discharge: No Stand-Alone Forms: My [employer], Smoking Cessation Skilled Items Patient informed of condition?: Yes Discharge Level of Care: Other Communicable Disease: No Medications and DC Order Prescriptions: Continued bupropion HCl 100 mg Tablet 450 mg PO DAILY RF: 0 trazodone 100 mg Tablet 200 mg PO HS RF: 0 topiramate [Topamax] 200 mg Tablet 200 mg PO BID RF: 0 Dovato 50-300 mg Tablet 0 tab PO DAILY RF: 0 Discharge Orders: Left Against Medical Advice (Routine); Ordered 06/28/21 Ordered By: Alfred Balderas Admission Data Admit Date/Time: 06/27/21 12:36 Attending Provider: Alfred Bladeras Admit Provider: Mj De Leon Primary Care Provider: PCP,NO Other Providers: Mj De Leon ; Stephanie Ashby ; Ashley Kelly ; Luiza Osman ; Ruben Nolen Other Interventions: Discharge Summary Assessment (RN) Last Done: 06/28/21 13:49 Coding Level of Care Code D/C DAY MANAGEMENT >30 MINS Diagnoses Alcohol use disorder Depression, unspecified F32.89 Depression Type: other depression Anxiety disorder, unspecified F41.9 Suicidal ideation R45.851 Chest pain R07.9
[2021-06-28] MEDS ORDERED: CHLORDIAZEPOXIDE 50MG 2ND DOSE PO SCH (15:30)
[2021-06-29] MEDS ORDERED: CHLORDIAZEPOXIDE 25MG 3RD DOSE PO SCH (15:30)
[2021-06-29 18:36] LABS: MDA negative; MDEA negative; MDMA (Ecstasy) Urine, Confirm negative
[2021-06-30] MEDS ORDERED: CHLORDIAZEPOXIDE 10MG 4TH DOSE PO SCH (19:00)
== END 2021-06-28 14:21 | disposition left against medical advice (07) ==
LOC: ED 17:40 → SUATTDRO 06-27 12:36 → INTOOBSV 06-27 12:36 → 1E 06-27 12:36